=== PATIENT | female | born 1955 | race Caucasian/White ===

== ENCOUNTER 2017-08-08 17:47 | Inpatient (IN) | payer OTHER ==
[2017-08-08 17:56] VITALS: O2SAT 99
[2017-08-08 18:12] LABS: AUTOMATED NEUTROPHIL # 4.7 TH/MM3 (1.8-7.7); BASOPHIL # 0.1 TH/MM3 (0-0.2); BASOPHIL % 0.6 % (0.0-2.0); EOSINOPHIL # 0.3 TH/MM3 (0-0.4); HEMATOCRIT 34.1 % (35.0-46.0); HEMO FLAGS DIFF FINAL; LYMPH % 38.7 % (9.0-44.0); LYMPHOCYTE # 3.5 TH/MM3 (1.0-4.8); MEAN CELL VOLUME 93.6 FL (80.0-100.0); MEAN CORPUSCULAR HEMOGLOBIN 32.9 PG (27.0-34.0); MEAN CORPUSCULAR HGB CONC 35.1 % (32.0-36.0); MONO % 5.2 % (0.0-8.0); NEUT % 52.5 % (16.0-70.0); PLATELET COUNT 210 TH/MM3 (150-450); RED BLOOD COUNT 3.64 MIL/MM3 (4.00-5.30); RED CELL DISTRIBUTION WIDTH 12.9 % (11.6-17.2)
[2017-08-08 18:14] LABS: I-STAT POTASSIUM 2.7 MMOL/L (3.5-4.9)
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
[2017-08-08] MEDS: SODIUM CHLOR 0.9% 1000 ML INJ 1,000 ML IV SCH ×2 (18:25→20:41)
[2017-08-08] MEDS ORDERED: IOHEXOL 350 MG/ML 10 ML VIAL (for RAD DIAG) IVCONTRAST ONE (18:27)
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
[2017-08-08 18:30] VITALS: BP 125/59; PULSE 77; RESP 10; TEMP 96.9; O2SAT 100
[2017-08-08] MEDS ORDERED: CHLORHEXIDINE GLUCONATE 2 % 1 PACK (2 CLOTHS) TOP PRN (18:30)
[2017-08-08] MEDS ORDERED: SENNOSIDES 8.6 MG TAB PO PRN (18:30)
[2017-08-08] MEDS ORDERED: MISCELLANEOUS NURSING INFORMATION XX SCH (18:30)
[2017-08-08] MEDS ORDERED: MAGNESIUM HYDROXIDE SUSP 30 ML CUP PO PRN (18:30)
[2017-08-08] MEDS ORDERED: BISACODYL 10 MG SUPP RECTAL PRN (18:30)
[2017-08-08] MEDS ORDERED: LACTULOSE SYRUP 20 GM/30 ML CUP PO PRN (18:30)
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
[2017-08-08 18:43] LABS: APTT (PATIENT) 20.9 SEC (24.3-30.1); PROTHROMBIN TIME - PATIENT 10.5 SEC (9.8-11.6)
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
[2017-08-08] MEDS ORDERED: ACETAMINOPHEN 1000 MG/100 ML 100 ML IV SCH (18:45)
[2017-08-08] MEDS ORDERED: ACETAMINOPHEN 1000 MG/100 ML 100 ML IV PRN (18:45)
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
[2017-08-08 19:51] VITALS: O2SAT 100
[2017-08-08 20:00] VITALS: BP 129/64; PULSE 72; PULSE 75; RESP 15; TEMP 97.7; O2SAT 100
[2017-08-08] MEDS: ONDANSETRON HCL 4 MG/2 ML VIAL IV PUSH PRN (20:19)
[2017-08-08] MEDS ORDERED: levETIRAcetam INJ 500 MG in SODIUM CHLORIDE 0.9% INJ 100 ML IV SCH (21:00)
[2017-08-08 21:13] VITALS: O2SAT 99
[2017-08-08] MEDS ORDERED: POTASSIUM PHOSPHATE MONOBASIC 500 MG TAB PO PRN (21:15)
[2017-08-08] MEDS ORDERED: POTASSIUM PHOSPHATE INJ 30 MMOL in SODIUM CHLOR 0.9% 250 ML INJ 250 ML IV PRN (21:15)
[2017-08-08] MEDS ORDERED: MAGNESIUM OXIDE 400 MG TAB PO PRN (21:15)
[2017-08-08] MEDS ORDERED: POTASSIUM CHLORIDE 25 MEQ EFFERVESCENT TAB PO PRN (21:15)
[2017-08-08] MEDS ORDERED: MAGNESIUM SULFATE INJ 2 GM in SODIUM CHLORIDE 0.9% INJ 96 ML IV PRN (21:15)
[2017-08-08] MEDS ORDERED: POTASSIUM CHLOR 20 MEQ PREMIX 100 ML IV PRN ×2 (21:15)
[2017-08-08] MEDS ORDERED: POTASSIUM PHOSPHATE MONOBASIC 500 MG TAB PO/TUBE PRN (21:15)
[2017-08-08] MEDS ORDERED: MAGNESIUM SULFATE INJ 4 GM in SODIUM CHLORIDE 0.9% INJ 92 ML IV PRN (21:15)
[2017-08-08] MEDS ORDERED: SODIUM PHOSPHATE INJ 30 MMOL in SODIUM CHLOR 0.9% 250 ML INJ 240 ML IV PRN (21:15)
[2017-08-08] MEDS ORDERED: POTASSIUM CHLOR 40 MEQ PREMIX 100 ML IV PRN ×2 (21:15)
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
[2017-08-08 22:00] VITALS: PULSE 65
[2017-08-08] MEDS: FAMOTIDINE 20 MG TAB PO SCH (22:28)
[2017-08-08] MEDS: DOCUSATE SODIUM 50 MG/SENNA 8.6 MG TAB PO SCH (22:29)
[2017-08-09] VITALS (12 sets, daily range): BP systolic 90–118; BP diastolic 51–72; PULSE 57–102; RESP 11–33; TEMP 98.1–99; O2SAT 95–100
[2017-08-09] MEDS: CHLORHEXIDINE GLUCONATE 2 % 1 PACK (2 CLOTHS) TOP SCH (04:00)
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
[2017-08-09 05:07] LABS: BASOPHIL % 0.1 % (0.0-2.0); HEMATOCRIT 30.9 % (35.0-46.0); HEMO FLAGS DIFF FINAL; LYMPHOCYTE # 0.9 TH/MM3 (1.0-4.8); MEAN CELL VOLUME 93.1 FL (80.0-100.0); MEAN CORPUSCULAR HEMOGLOBIN 31.7 PG (27.0-34.0); MEAN CORPUSCULAR HGB CONC 34.1 % (32.0-36.0); NEUT % 90.9 % (16.0-70.0); PLATELET COUNT 193 TH/MM3 (150-450); RED BLOOD COUNT 3.32 MIL/MM3 (4.00-5.30); RED CELL DISTRIBUTION WIDTH 12.7 % (11.6-17.2); WHITE BLOOD COUNT 14.2 TH/MM3 (4.0-11.0)
[2017-08-09 05:30] LABS: ANION GAP 6 MEQ/L (5-15); AST (GOT) 34 U/L (15-37); BICARBONATE 27.3 MEQ/L (21.0-32.0); BLOOD UREA NITROGEN 11 MG/DL (7-18); CHLORIDE 105 MEQ/L (98-107); GLOMERULAR FILTRATION RATE 80 ML/MIN (>89); POTASSIUM 3.6 MEQ/L (3.5-5.1); SODIUM (NA) 138 MEQ/L (136-145)
[2017-08-09 05:32] LABS: ALT (GPT) 22 U/L (10-53)
[2017-08-09 05:33] LABS: ALKALINE PHOSPHATASE 70 U/L (45-117); TOTAL BILIRUBIN ADULT 0.3 MG/DL (0.2-1.0)
[2017-08-09] MEDS: SODIUM CHLOR 0.9% 1000 ML INJ 1,000 ML IV SCH ×2 (08:30→14:25)
[2017-08-09] MEDS ORDERED: ACETAMINOPHEN/HYDROcodone 325 MG/7.5 MG TAB PO PRN (09:00)
[2017-08-09] MEDS: DOCUSATE SODIUM 50 MG/SENNA 8.6 MG TAB PO SCH ×2 (09:15→21:15)
[2017-08-09] MEDS ORDERED: ONDANSETRON HCL 4 MG/2 ML VIAL IV PUSH PRN (09:15)
[2017-08-09] MEDS: FAMOTIDINE 20 MG TAB PO SCH ×2 (09:15→21:15)
[2017-08-09] MEDS: ONDANSETRON HCL 4 MG/2 ML VIAL IV PUSH PRN ×2 (09:15→16:28)
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
[2017-08-09] MEDS: levETIRAcetam 500 MG TAB PO SCH ×2 (10:30→21:15)
[2017-08-09] MEDS ORDERED: SODIUM CHLOR 0.9% 1000 ML INJ 1,000 ML IV ONE (10:30)
--- NOTE | 2017-08-09 11:01 | PD.CONS ---
HPI Consult Requested By Primary Care Physician Jamil Garibay MD Past Family Social History Allergies: Coded Allergies: No Allergy Information Available (Unverified , 08/08/17) n Physical Exam Vital Signs Vital Signs Date Time Temp Pulse Resp B/P (MAP) Pulse Ox O2 Delivery O2 Flow Rate FiO2 08/09/17 07:00 96 Nasal Cannula 2.00 21 08/09/17 06:00 77 08/09/17 04:00 69 08/09/17 04:00 98.9 68 11 94/51 (65) 95 08/09/17 02:00 66 08/09/17 00:00 98.1 67 13 118/57 (77) 100 08/09/17 00:00 67 08/08/17 22:00 65 08/08/17 21:13 99 21 08/08/17 20:00 97.7 75 15 129/64 (85) 100 08/08/17 20:00 72 08/08/17 19:51 100 Nasal Cannula 2.00 08/08/17 18:30 96.9 77 10 125/59 (81) 100 08/08/17 18:30 100 Nasal Cannula 2.00 08/08/17 17:56 99 2.00 Laboratory Laboratory Tests Test 08/08/17 17:51 08/09/17 03:54 White Blood Count 9.0 14.2 Red Blood Count 3.64 3.32 Hemoglobin 12.0 10.5 Bedside Hemoglobin 11.6 Hematocrit 34.1 30.9 Bedside Hematocrit 34.0 Mean Corpuscular Volume 93.6 93.1 Mean Corpuscular Hemoglobin 32.9 31.7 Mean Corpuscular Hemoglobin Concent 35.1 34.1 Red Cell Distribution Width 12.9 12.7 Platelet Count 210 193 Mean Platelet Volume 9.1 9.4 Neutrophils (%) (Auto) 52.5 90.9 Lymphocytes (%) (Auto) 38.7 6.0 Monocytes (%) (Auto) 5.2 3.0 Eosinophils (%) (Auto) 3.0 0.0 Basophils (%) (Auto) 0.6 0.1 Neutrophils # (Auto) 4.7 13.0 Lymphocytes # (Auto) 3.5 0.9 Monocytes # (Auto) 0.5 0.4 Eosinophils # (Auto) 0.3 0.0 Basophils # (Auto) 0.1 0.0 CBC Comment DIFF FINAL DIFF FINAL Differential Comment Prothrombin Time 10.5 Prothromb Time International Ratio 1.0 Activated Partial Thromboplast Time 20.9 Bedside Sodium 139 Bedside Potassium 2.7 Bedside Chloride 100 Bedside Blood Urea Nitrogen 13 Bedside Creatinine 0.7 Bedside Glucose 153 Blood Urea Nitrogen 11 Creatinine 0.64 Random Glucose 139 Total Protein 6.3 Albumin 3.1 Calcium Level 8.1 Phosphorus Level 3.3 Magnesium Level 2.0 Alkaline Phosphatase 70 Aspartate Amino Transf (AST/SGOT) 34 Alanine Aminotransferase (ALT/SGPT) 22 Total Bilirubin 0.3 Sodium Level 138 Potassium Level 3.6 Chloride Level 105 Carbon Dioxide Level 27.3 Anion Gap 6 Estimat Glomerular Filtration Rate 80 Result Diagram: 08/09/17 0354 08/09/17 0354 Darien Iniguez MD Aug 09, 2017 11:01
[2017-08-09] MEDS: ACETAMINOPHEN/HYDROcodone 325 MG/5 MG TAB PO PRN ×2 (16:28→21:22)
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
[2017-08-10] VITALS (9 sets, daily range): BP systolic 102–110; BP diastolic 52–64; PULSE 56–95; RESP 16–22; TEMP 98.2–98.6; O2SAT 94–98
[2017-08-10] MEDS: CHLORHEXIDINE GLUCONATE 2 % 1 PACK (2 CLOTHS) TOP SCH (04:00)
[2017-08-10 04:38] LABS: BASOPHIL % 0.6 % (0.0-2.0); EOSINOPHIL # 0.1 TH/MM3 (0-0.4); EOSINOPHIL % 1.2 % (0.0-4.0); HEMATOCRIT 29.2 % (35.0-46.0); HEMO FLAGS DIFF FINAL; LYMPH % 35.1 % (9.0-44.0); LYMPHOCYTE # 2.4 TH/MM3 (1.0-4.8); MEAN CELL VOLUME 94.9 FL (80.0-100.0); MEAN CORPUSCULAR HEMOGLOBIN 32.9 PG (27.0-34.0); MEAN CORPUSCULAR HGB CONC 34.7 % (32.0-36.0); MONO % 5.3 % (0.0-8.0); NEUT % 57.8 % (16.0-70.0); PLATELET COUNT 157 TH/MM3 (150-450); RED BLOOD COUNT 3.07 MIL/MM3 (4.00-5.30)
[2017-08-10 05:04] LABS: BICARBONATE 27.5 MEQ/L (21.0-32.0); POTASSIUM 3.8 MEQ/L (3.5-5.1)
[2017-08-10] MEDS: FAMOTIDINE 20 MG TAB PO SCH ×2 (08:30→21:12)
[2017-08-10] MEDS: levETIRAcetam 500 MG TAB PO SCH ×2 (08:30→21:12)
[2017-08-10] MEDS: ACETAMINOPHEN/HYDROcodone 325 MG/5 MG TAB PO PRN (08:30)
[2017-08-10] MEDS: DOCUSATE SODIUM 50 MG/SENNA 8.6 MG TAB PO SCH ×2 (08:30→21:12)
[2017-08-10] MEDS: ONDANSETRON HCL 4 MG/2 ML VIAL IV PUSH PRN (08:31)
[2017-08-10] MEDS: SODIUM CHLOR 0.9% 1000 ML INJ 1,000 ML IV SCH (10:25)
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
[2017-08-11] VITALS: BP 109/59; PULSE 98; RESP 20; TEMP 99.1; O2SAT 98
[2017-08-11 04:00] VITALS: BP 113/54; PULSE 53; RESP 18; TEMP 97.6; O2SAT 96
[2017-08-11] MEDS: CHLORHEXIDINE GLUCONATE 2 % 1 PACK (2 CLOTHS) TOP SCH (04:00)
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
[2017-08-11 08:28] VITALS: BP 107/53; PULSE 55; RESP 20; TEMP 98.6; O2SAT 99
[2017-08-11] MEDS: FAMOTIDINE 20 MG TAB PO SCH (08:54)
[2017-08-11] MEDS: levETIRAcetam 500 MG TAB PO SCH (08:54)
[2017-08-11] MEDS: DOCUSATE SODIUM 50 MG/SENNA 8.6 MG TAB PO SCH (08:54)
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
[2017-08-11 12:37] VITALS: BP 113/55; PULSE 62; RESP 20; TEMP 97.8; O2SAT 98
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
[2017-08-11] MEDS ORDERED: SENN187 PO (13:31)
[2017-08-11] MEDS ORDERED: HYDR-3516 PO (13:31)
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
== END 2017-08-11 16:36 | disposition home or self-care (01) | DRG 84 ==
LOC: NEPI 17:47 → EDBD 18:20 → NEDA 18:20 → N03A 18:28 → N05A 08-10 16:22
PROVIDERS: ADMIT Surgery Trauma Surgery; ATTEND Surgery Trauma Surgery
DX: S06.6X9A Traumatic subarachnoid hemorrhage with loss of consciousness of unspecified duration, initial encounter (principal); E87.6 Hypokalemia; R40.2422 Glasgow coma scale score 9-12, at arrival to emergency department; R41.2 Retrograde amnesia; V43.52XA Car driver injured in collision with other type car in traffic accident, initial encounter; Y92.410 Unspecified street and highway as the place of occurrence of the external cause
CPT/HCPCS: 70450; 71010; 71260; 72125; 72170; 74177; 80048; 80053; 82435; 82565; 82947; 83735; 84100; 84132; 84295; 84520; 85025; 85610; 85730; 86850; 86900; 86901; 94150; J0131; J1953; J2405; J7030; Q9967